=== PATIENT | female | born 1945 | race Caucasian/White ===

== ENCOUNTER → 2019-01-31 | Outpatient (CLI) | payer MEDICARE, BC ==
[2019-01-31 13:01] VITALS: BP 82/58; PULSE 53; RESP 16
--- NOTE | 2019-01-31 13:40 | P.PAINCN ---
History of Present Illness - Reason for Consult Consult date: 01/31/19 - History of Present Illness This is an initial consultation visit for this 74 years old female, with a chronic history of severe numbness and burning sensation on the left side of the occipital area, she reported that her symptoms started in October 2018, she denies any initiating event and she reported that her symptoms is mainly on the left occipital area, and left parietal area, she denies any visual changes she denies any skin rash, she denies any neck pain patient denies any motor or sensory deficits, she reported that her migraines issue is the burning sensation on the numbness, to the degree that she cannot touch her skull, she tried multiple medications without any benefit prednisone/acyclovir/oxacarbazepin, Neurontin, although this medication she had no benefit from it , the symptoms interfering with her quality of life Past Medical History Past Medical History: Coronary Artery Disease (CAD), Hypertension History of Any Multi-Drug Resistant Organisms: None Reported Past Surgical History: Back Surgery, Coronary Bypass/CABG, Tubal Ligation Additional Past Surgical History / Comment(s): 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 Past Anesthesia/Blood Transfusion Reactions: No Reported Reaction Past Psychological History: No Psychological Hx Reported Smoking Status: Never smoker Past Alcohol Use History: Rare Past Drug Use History: None Reported Medications and Allergies Home Medications Medication Instructions Recorded Confirmed Type Aspirin [Adult Low Dose Aspirin EC] 1 cap PO DAILY 01/31/19 01/31/19 History Atenolol 1 tab PO DAILY 01/31/19 01/31/19 History Citalopram Hydrobromide [CeleXA] 1 tab PO DAILY 01/31/19 01/31/19 History Lisinopril [Zestril] 1 tab PO DAILY 01/31/19 01/31/19 History Allergies Allergy/AdvReac Type Severity Reaction Status Date / Time Iodine and Iodide Containing Allergy Anaphylaxis Verified 01/31/19 13:03 Produc meperidine [From Demerol] Allergy Rash/Hives Verified 01/31/19 13:03 penicillin V Allergy Rash/Hives Verified 01/31/19 13:03 Sulfa (Sulfonamide Allergy Anaphylaxis Verified 01/31/19 13:03 Antibiotics) Physical Exam Vitals: Vital Signs Pulse Resp BP Pulse Ox 01/31/19 12:46 53 L 16 82/58 96 Intake and Output 01/30/19 01/31/1919 22:59 06:59 14:59 Other: Weight 108.862 kg REVIEW OF ORGAN SYSTEMS: CONSTITUTIONAL: No fevers or chills. No recent weight loss. EYES: History of troubles with vision. No glasses. HEENT: No difficulties with hearing. No nosebleeds. No difficulty swallowing. RESPIRATORY: Past pneumonia. Denies any troubles with breathing or dyspnea on exertion. CARDIOVASCULAR: Denies any chest pain, palpitations, or recent heart attacks. GASTROINTESTINAL: Denies fatty food intolerance. Has change in bowel habits and gas bloat. GENITOURINARY: Denies any blood in urine. Has increased urinary frequency. NEUROLOGICAL: Denies any numbness or tingling along the distal extremities. No seizure disorders or headaches. Burning and numbness at the top of the left skull,left parietal area MUSCULOSKELETAL: Has back pain, stiffness or joint arthritis. SKIN: Past t skin cancer. No rash. PSYCHIATRIC: Denies current depression or suicidal thoughts. ENDOCRINE: Denies current thyroid disorders. Denies any blood sugar glucose intolerance. HEME/LYMPHATIC: Denies any lumps and bumps around the neck. History of deep venous thrombosis. ALLERGY/IMMUNOLOGY: No immunoglobulin therapy. No immune deficiencies. BREAST: Denies current breast lumps, pain or nipple discharge. Physical Examinations : Constitutiona : Cooperative , not in acute distress . HEENT : nech : supple , no Lymphadenopathy , normal thyroid size . eyes : no ptosis , no icterus, no photophobia . neurologic : Cranial nerve II to XII intact , no focal neurological deffecit . Allodynia and hyperalgesia and the left side of the occipital, left parietal psychatric : alert , oriented X 3 , appropriate affect , intact judgment and insight . Lymphatic : no Lymphadenopathy . musculoskeltal : Cervical Spine motor stregnth in the deltoid and biceps, normal right side , normal Left side motor stregnth biceps and the wrist extensors normal right side ,normal left side . motor stregnth in the triceps muscle . normal Right side , normal Left side deep tendon reflexes normal at the biceps , normal at Brachioradialis , normal at triceps. cervical facet loading test: negative Bilaterally. Lumber spine moter stegnth lower extremities ,thigh and legs 5/5 Right side , 5/5 Left side Results Comments: MRI of the brain= mild atrophy and normal internal auditory canal, Assessment and Plan Assessment: Assessment and plan= left occipital neuralgia Patient could benefit from left occipital nerve block Time with Patient: Greater than 30 PQRS Measure Charge Sheet Measure #130: Documentation of Current Meds in Medical Chart: Patient's medications documented in chart Measure #226: Tobacco Use: Screen & Cessation Intervention: Pt not a tobacco user Measure #111: Pneumonia Vaccination: Pneumococcal vaccine administered or previously received Measure #47: Advance Care Plan: Advance care planning discussed & documented, pt chose/unable to give Measure #412: Opioid Treatment Agreement: No documentation of signed opioid treatment agreement Measure #408: Opioid Therapy Follow-up Evaluation: Patient had NO f/u eval minimum every 3 months during opioid therapy Measure #317: Preventitive Care & Scrn High Bld Press & F/U: Pre-hypertensive or hypertensive BP documented, pt will f/u with PCP Measure #128: Body Mass Index (BMI) Screening & Follow-up: BMI documented ABOVE normal parameters - f/u documented Measure #131: Pain Assessment & Follow-up: Pain positive & plan documented, Follow-up scheduled Measure #431: Unhealthy Alcohol Use Preventative Care & Scrn: Patient not identified as an unhealthy alcohol user PQRS Narrative: Smoking Status Never smoker Blood Pressure 82/58 Pain Intensity [Left Head] 9 Scale Used Numeric (1 - 10) Hx Alcohol Use (MH) Yes Home Medications: Ambulatory Orders Aspirin [Adult Low Dose Aspirin EC] 1 cap PO DAILY 01/31/19 Atenolol 1 tab PO DAILY 01/31/19 Citalopram Hydrobromide [CeleXA] 1 tab PO DAILY 01/31/19 Lisinopril [Zestril] 1 tab PO DAILY 01/31/19
== END ==
LOC: PNWHC3 12:00
PROVIDERS: ATTEND Specialist
DX: M54.81 Occipital neuralgia (principal); I25.10 Atherosclerotic heart disease of native coronary artery without angina pectoris; I10 Essential (primary) hypertension; Z79.899 Other long term (current) drug therapy; Z79.82 Long term (current) use of aspirin; Z88.0 Allergy status to penicillin; Z88.2 Allergy status to sulfonamides; Z88.8 Allergy status to other drugs, medicaments and biological substances
CPT/HCPCS: 99201

== ENCOUNTER 2019-02-07 08:03 | Day surgery (SDC) | payer MEDICARE, BC ==
[2019-02-05 11:13] VITALS: BMI 39.9
[~2019-02-07 08:03] MED LIST: LACTATED RINGERS 1,000 ML IV SCH
[2019-02-07 09:39] VITALS: TEMP 97.2
[2019-02-07] MEDS ORDERED: LIDOCAINE 1% 20 ML VIAL (10MG/ML) FOR IV START INTRADERMA ONE (09:41)
--- NOTE | 2019-02-07 10:30 | P.PCN ---
Date of Procedure: 02/07/19 Procedure(s) Performed: Preoperative diagnoses= 1- Left Greater occipital neuralgia Postoperative diagnoses= same as preoperative diagnosis. Procedure= Left Greater occipital nerve block Anesthesia= moderate sedation with Versed 1 mg and fentanyl 50 micrograms and local infiltration with lidocaine 1% 2 ml Estimated blood loss=minimal. Procedure indication= the patient had a history of severe chronic neck pain ,and headache, diagnosed with occipital neuralgia exam was positive for severe tenderness over the occipital nerve bilaterally, she will be a good candidate occipital nerve block, patient failed conservative management Procedure description= the patient was seen and identified in the preoperative holding area, risks and benefits and alternative of the procedure and possible complications discussed with the patient, and he agreed with the preceding, patient signed the consent, an IV was started, and vital signs were monitored and were stable throughout the procedure, patient was placed in the sitting position or table and the neck area was prepped and draped with a sterile fashio n, vital signs were closely monitored during the procedure, 25-gauge needle advanced 1 inch lateral to the occipital protuberance on the Left side, at the location of the Left occipital nerve , then after negative aspiration for heme and CSF and there was no paresthesia during the injection, 6 ml of Robivacaine 0.5% and 40 mg of Depo-Medrol injected after negative aspiration, the needle removed, Patient tolerated the procedure well without any complication, The patient returned to supine position after the back was cleaned and a Band- Aid applied, the patient transported to recovery room in stable condition and he was monitored for 30 minutes before he was discharged home and then patient was reexamined before going home and patient was discharged in stable condition and patient will follow up with the pain clinic in a few weeks.
[2019-02-07] MEDS ORDERED: IV FLUID CONTINUATION 850 ML IV ONE (10:35)
[2019-02-07 11:07] VITALS: BP 138/63; PULSE 52; RESP 16
== END 2019-02-07 11:05 | disposition home or self-care (01) ==
LOC: ORPAIN 08:03
PROVIDERS: ATTEND Specialist
DX: M54.81 Occipital neuralgia (principal); I25.10 Atherosclerotic heart disease of native coronary artery without angina pectoris; I10 Essential (primary) hypertension; Z95.1 Presence of aortocoronary bypass graft; Z98.51 Tubal ligation status; Z79.899 Other long term (current) drug therapy; Z88.5 Allergy status to narcotic agent; Z88.0 Allergy status to penicillin; Z88.2 Allergy status to sulfonamides; Z88.8 Allergy status to other drugs, medicaments and biological substances
CPT/HCPCS: 64405; J2250; J1030; J3010

== ENCOUNTER 2019-02-21 08:24 | Day surgery (SDC) | payer MEDICARE, BC ==
[2019-02-21 09:30] VITALS: RESP 16; TEMP 97.9
[2019-02-21] MEDS ORDERED: LIDOCAINE 1% 20 ML VIAL (10MG/ML) FOR IV START INTRADERMA ONE (09:52)
[2019-02-21] MEDS ORDERED: IV FLUID CONTINUATION 1,000 ML IV ONE (10:18)
[2019-02-21 10:42] VITALS: BP 169/74; PULSE 59
--- NOTE | 2019-02-21 10:53 | P.PCN ---
Date of Procedure: 02/21/19 Procedure(s) Performed: Pre-operative diagnosis: left occipital neuralgia Post Operative Diagnosis same Procedure: left occipital nerve block ANESTHESIA: none EBL: Minimal PROCEDURE INDICATION: The patient with neck pain and headache secondary to occipital neuralgia unresponsive to conservative treatments. PROCEDURE DESCRIPTION / TECHNIQUE: The patient was seen and identified in the preoperative area. Risks, benefits, complications, and alternatives were discussed with the patient, the patient agreed to proceed with the procedure and signed the consent. IV was started. Vital signs remained stable throughout the procedure. Patient was taken to the OR and time out was completed. The patient was placed in the seated position on the procedure table. The left occiptial area were prepped with alcohol swab. Vital signs were closely monitored during the procedure. The left occiptal ridge was palpated and was then accessed with a 25 G needle. Then after negative aspiration, 4 ml of the block solution containing 3 ml of ropivacaine 0.5% and Depo-Medrol 40 mg was injected. Needle was withdrawn intact. Patient tolerated procedure well. No acute complications.
== END 2019-02-21 10:57 | disposition home or self-care (01) ==
LOC: ORPAIN 08:24
PROVIDERS: ATTEND Anesthesiology
DX: G89.29 Other chronic pain (principal); M54.81 Occipital neuralgia; I25.10 Atherosclerotic heart disease of native coronary artery without angina pectoris; I10 Essential (primary) hypertension; Z95.1 Presence of aortocoronary bypass graft; Z98.51 Tubal ligation status; Z98.890 Other specified postprocedural states; G43.909 Migraine, unspecified, not intractable, without status migrainosus; Z86.018 Personal history of other benign neoplasm; Z79.82 Long term (current) use of aspirin; Z79.899 Other long term (current) drug therapy; Z88.0 Allergy status to penicillin; Z88.2 Allergy status to sulfonamides; Z88.5 Allergy status to narcotic agent; Z91.041 Radiographic dye allergy status; Z88.8 Allergy status to other drugs, medicaments and biological substances
CPT/HCPCS: 64405; J1030

== ENCOUNTER → 2019-03-21 | Outpatient (CLI) | payer MEDICARE, BC ==
[2019-03-21 11:46] VITALS: BP 182/69; PULSE 54; RESP 16
--- NOTE | 2019-03-21 11:47 | P.PN ---
Subjective Progress Note Date: 03/21/19 This is a 73-year-old lady with history of left-sided headache which has improved after 2 occipital nerve blocks. The patient denies any pain on the left side of her head at this point and she also denies any allodynia to touch was she used to have previously. The patient is very happy with the results of the injection she had in our clinic. Patient denies new-onset weakness, bowel/bladder incontinence, or any other signs or symptoms of cauda equina syndrome. There are no signs of acute intoxication, and no indications of medication diversion or overuse. In addition to above, 13-point review of systems is also negative for chest pain, shortness of breath, changes in vision, changes in hearing, new onset weakness, abdominal pain, diarrhea, extreme fatigue, malaise, fever, skin changes, homicidal or suicidal ideation, or bowel or bladder incontinence. Vital Signs: Reviewed in EMR Gen: AAOx3, NAD HEENT: PERRLA,hearing grossly normal Pulm: resp unlabored Heart: Regular Neck: supple, trachea midline Neuro: CN II-XII grossly intact, Imaging: Reviewed in EMR/chart Assessment: Left occipital neuralgia Plan: 1. Explanation: Opioid and psychological risk scores were reviewed. Diagnoses, prognoses, and multiple treatment options including but not limited to physical therapy, interventional therapies, adjuvant medical therapies, narcotic medication therapies, and surgery were discussed with the patient and all questions were answered to the patient's satisfaction. 2. Opioid agreement: No opioids were prescribed 3. Counseling: The patient was counseled extensively on SMOKING CESSATION, BODY MASS INDEX, EXERCISE. Specifically, the patient was instructed regarding the importance of smoking cessation, obesity, and exercise in the context of both chronic pain and overall health. 4. Procedures: Left occipital nerve block as needed 5. Consultations: None 6. Investigations: None 7. Medications: None 8. Disposition: Return to clinic on an as-needed basis 9. Maps were reviewed and were appropriate. PQRS measures: 1-Patient's medications are documented in the chart. 2-Tobacco use is negative, counseling given 3-Patient has had a pneumococcal vaccine. 4-Advanced care planning discussed, patient unable to give 5-Opioid contract not signed with the patient. 6-Pain positive, follow-up visit or procedure scheduled 7-Patient's blood pressure measured and documented above normal limits. The patient will follow up with his primary care physician. 8-Patient's weight was measured, and body mass index ABOVE the normal limits, and counseling was done. Patient instructed to follow up with PCP. 9-Patient WAS NOT identified as an unhealthy alcohol user.
== END | disposition home or self-care (01) ==
LOC: PNWHC3 11:23
PROVIDERS: ATTEND Anesthesiology
DX: M54.81 Occipital neuralgia (principal)
CPT/HCPCS: 99211